=== PATIENT | female | born 1985 | race Caucasian/White ===

== ENCOUNTER 2018-08-10 16:04 | Emergency (ER) | payer MEDICAID, OTHER ==
[~2018-08-10] VITALS: Wt 82.0 kg
[~2018-08-10 16:04] MED LIST: FERR28TA PO; IBUP-1544 PO; PREN-39 PO
[2018-08-10 16:16] VITALS: BP 127/74; PULSE 78; RESP 18
[2018-08-10] MEDS ORDERED: IBUP800T48 PO (16:37)
[2018-08-10] MEDS ORDERED: NAPR-985 PO (16:38)
[2018-08-10] MEDS ORDERED: CYCL10TA7 PO (16:38)
[2018-08-10] MEDS ORDERED: HYDR-4011 PO (16:38)
[2018-08-10] MEDS ORDERED: IBUPROFEN 800 MG TAB PO ONE (17:00)
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
== END 2018-08-10 17:18 | disposition home or self-care (01) ==
LOC: FTE 16:04
DX: M54.9 Dorsalgia, unspecified (principal); M54.2 Cervicalgia
CPT/HCPCS: Z7502; Z7610; 99283

== ENCOUNTER 2018-08-17 16:45 | Emergency (ER) | payer OTHER ==
[~2018-08-17] VITALS: Ht 170.2 cm; Wt 116.8 kg
[~2018-08-17 16:45] MED LIST changes: +CYCL10TA7 PO; +HYDR-4011 PO; +NAPR-985 PO
[2018-08-17 16:57] VITALS: Ht 170.2 cm; Wt 116.8 kg
[2018-08-17] MEDS ORDERED: HYDROCODONE/APAP (5/325) TAB PO ONE (17:30)
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
[2018-08-17] MEDS ORDERED: NAPR-985 PO (19:16)
[2018-08-17 19:24] VITALS: BP 138/83; PULSE 67; RESP 16
== END 2018-08-17 19:25 | disposition home or self-care (01) ==
LOC: FTE 16:45
DX: S13.4XXA Sprain of ligaments of cervical spine, initial encounter (principal); S49.92XA Unspecified injury of left shoulder and upper arm, initial encounter; V89.2XXA Person injured in unspecified motor-vehicle accident, traffic, initial encounter
CPT/HCPCS: 72040; 73030; 81025; Z7502; Z7610